=== PATIENT | female | born 1950 | race Caucasian/White ===

== ENCOUNTER → 2016-09-04 | Outpatient (CLI) | payer OTHER ==
[~2016-09-04] MED LIST: IOPAMIDOL (ISOVUE-300) 100 ML BTL IV ONE
[2016-09-04 13:36] LABS: CREATININE 0.6 mg/dL (0.6-1.0); GLOMERULAR FILTRATION RATE > 60
--- NOTE | 2016-09-04 18:36 | CT ---
CT Chest, Abdomen, and Pelvis, With Contrast History: Diaphragmatic hernia, left upper quadrant pain, shortness of breath. Technique: Axial contrast-enhanced images were obtained through the chest, abdomen, and pelvis follo wing the uneventful administration of oral contrast and 90 mL Isovue-300 intravenous contrast. Dose reduction techniques were utilized. Comparison: CT abdomen and pelvis August 19, 2010, portable chest December 12, 2009. Findings: Chest: Mild central peribronchial thickening is present. Right upper lobe granuloma is noted. Hear t size is normal. Minimal coronary artery atherosclerosis is present in the LAD. The aorta is radha l caliber, without dissection. A 1.1 cm air collection at the right margin of the esophagus and post erior aspect of the trachea may be related to an esophageal diverticulum, with no appreciable continu ity with the esophagus or trachea (series #3, image #19). No pathologically enlarged lymph nodes are identified. There is indeterminate benign-appearing sclerosis in the manubrium. Degenerative hudson e is present in the spine. Abdomen: A 6.6 x 5.6 cm posterior segment right hepatic cyst has increased in size since the compari son, where it measured 3.5 x 4.2 cm. The gallbladder, spleen, pancreas, adrenals, and kidneys are no rmal. A large hiatal hernia is increased since the comparison. Moderate colonic diverticulosis, most promi nent in the sigmoid, is present, without evidence of diverticulitis. The colon and small bowel are n ormal caliber. The appendix is normal. Mild atherosclerosis is present in a normal caliber aorta. The IVC, portal, splenic, and superior me senteric veins are patent. No pathologically enlarged lymph nodes are identified. Benign-appearing L2 sclerosis is unchanged. Levoscoliosis of the lumbar spine is stable, with mild d egenerative change and trace anterolisthesis of L4 on L5. Pelvis: The bladder is decompressed. The uterine contour is normal. No adnexal masses are identifi ed. No pathologically enlarged lymph nodes are present. Mild degenerative change is present in the sacroiliac joints. No aggressive osseous lesions are present. Impression: 1. Increased large hiatal hernia. 2. Mild bronchitis/airways disease. 3. Diverticulosis, without evidence of diverticulitis. 4. Additional findings, as above.
== END ==
LOC: FIMAGING 12:22
PROVIDERS: ATTEND Surgery
DX: K44.9 Diaphragmatic hernia without obstruction or gangrene (principal); K57.90 Diverticulosis of intestine, part unspecified, without perforation or abscess without bleeding; J98.4 Other disorders of lung; K76.89 Other specified diseases of liver; M41.86 Other forms of scoliosis, lumbar region
CPT/HCPCS: Q9967